=== PATIENT | female | born 1985 | race American Indian/Alaskan Native ===

== ENCOUNTER 2020-01-17 16:25 | Emergency (ER) | payer OTHER ==
[2020-01-17 16:38] VITALS: BP 131/83
--- NOTE | 2020-01-17 17:23 | XRay Report ---
FRACTURE INDICATION / CLINICAL INFORMATION: left knee injury. Unable to stand and walk on left COMPARISON: None available. FINDINGS: BONES / JOINT(S): No acute fracture or subluxation. No significant arthritis. SOFT TISSUES: No significant abnormality. ADDITIONAL FINDINGS: None. Signer Name: Juan Luis Rogers MD Signed: 01/17/2020 5:19 PM Workstation Name: [id number]
--- NOTE | 2020-01-17 20:29 | Emergency Department Report ---
ED Lower Extremity HPI - General Chief Complaint: Extremity Injury, Lower Stated Complaint: KNEE PAIN Time Seen by Provider: 01/17/20 20:23 Source: patient Mode of arrival: Wheelchair Limitations: No Limitations - History of Present Illness Initial Comments: 34-year-old -[place] female patient presents with complaints of left knee pain after twisting her knee while playing football today. She rates her pain as a 8/10 in severity and states it worsens with ambulation. She denies inability to bend the knee, numbness/tingling/weakness in her leg, bruising, or redness. Patient states Motrin 800mg is not helping with her pain. - Related Data Previous Rx's Medication Instructions Recorded Last Taken Type Acetaminophen/Codeine [Tylenol 1 tab PO Q8H PRN #4 tab 01/17/20 Unknown Rx /Codeine # 3 tab] Ibuprofen [Motrin 800 MG tab] 800 mg PO Q8HR PRN #21 tablet 01/17/20 Unknown Rx Allergies Allergy/AdvReac Type Severity Reaction Status Date / Time No Known Allergies Allergy Unverified 01/17/20 16:33 ED Review of Systems ROS: Stated complaint: KNEE PAIN Other details as noted in HPI Constitutional: denies: fever, malaise Musculoskeletal: joint swelling, arthralgia Skin: denies: change in color Neurological: denies: numbness, paresthesias ED Past Medical Hx - Past Medical History Previous Medical History?: No - Surgical History Past Surgical History?: No - Social History Smoking Status: Never Smoker Substance Use Type: None - Medications Home Medications: Home Medications Medication Instructions Recorded Confirmed Last Taken Type Acetaminophen/Codeine [Tylenol 1 tab PO Q8H PRN #4 tab 01/17/20 Unknown Rx /Codeine # 3 tab] Ibuprofen [Motrin 800 MG tab] 800 mg PO Q8HR PRN #21 tablet 01/17/20 Unknown Rx ED Physical Exam - General Limitations: No Limitations General appearance: alert, in no apparent distress - Head Head exam: Present: atraumatic, normocephalic - Eye Eye exam: Present: normal appearance. Absent: scleral icterus - Respiratory Respiratory exam: Absent: respiratory distress - Cardiovascular Cardiovascular Exam: Present: regular rate - Expanded Lower Extremity Exam Left Knee exam: Present: full ROM, tenderness (Tenderness noted to LCL and anterior lateral joint line; no effusion noted) ED Course Vital Signs 01/17/20 01/17/20 16:35 21:00 Temperature 99.0 F 99.0 F Pulse Rate 98 H 98 H Respiratory 18 18 Rate Blood Pressure 131/83 O2 Sat by Pulse 100 100 Oximetry ED Lower Extremity MDM - Radiology Data Radiology results: report reviewed FRACTURE INDICATION / CLINICAL INFORMATION: left knee injury. Unable to stand and walk on left COMPARISON: None available. FINDINGS: BONES / JOINT(S): No acute fracture or subluxation. No significant arthritis. SOFT TISSUES: No significant abnormality. ADDITIONAL FINDINGS: None. - Medical Decision Making Patient here with left knee pain after a football injury today. X-ray is negative for fracture. Patient likely has a knee sprain. Kendell wrap applied. Patient has her own crutches with her here today. Rice method advised along with follow-up with orthopedics. Her vitals are normal and she is well- appearing and stable for discharge home. Strict return precautions were discussed in detail patient verbalized understanding. Critical care attestation.: If time is entered above; I have spent that time in minutes in the direct care of this critically ill patient, excluding procedure time. ED Disposition Clinical Impression: Left knee sprain Qualifiers: Encounter type: initial encounter Involved ligament of knee: other ligament Qualified Code(s): S83.8X2A - Sprain of other specified parts of left knee, initial encounter Disposition: TO HOME OR SELFCARE Is pt being admited?: No Condition: Stable Instructions: Knee Sprain (ED) Prescriptions: Ibuprofen [Motrin 800 MG tab] 800 mg PO Q8HR PRN #21 tablet PRN Reason: pain Acetaminophen/Codeine [Tylenol /Codeine # 3 tab] 1 tab PO Q8H PRN #4 tab PRN Reason: Pain , Severe (7-10) Referrals: DARIO FITZPATRICK MD [Staff Physician] - 3-5 Days
== END 2020-01-17 22:27 | disposition home or self-care (01) ==
LOC: ED 16:25
DX: S83.8X1A Sprain of other specified parts of right knee, initial encounter (principal); X50.1XXA Overexertion from prolonged static or awkward postures, initial encounter; Y93.61 Activity, american tackle football; Y92.89 Other specified places as the place of occurrence of the external cause; Y99.8 Other external cause status